=== PATIENT | female | born 1950 | race Hispanic/Latino ===

== ENCOUNTER 2017-01-02 19:37 | Emergency (ER) | payer MEDICARE ==
[2017-01-02] MEDS ORDERED: ZOFRAN IV ONE (21:21)
[2017-01-02] MEDS ORDERED: MORPHINE IV ONE (21:21)
[2017-01-02 21:57] LABS: Basophils % (Auto) 1.1 % (0.0-1.8); Eosinophils % (Auto) 2.5 % (0.0-4.3); Hematocrit 34.4 % (30.3-42.9); Hemoglobin 10.7 gm/dl (10.1-14.3); Mean Corpuscular HGB Conc 31 % (30-34); Mean Corpuscular Volume 77 fl (79-97); Platelet Count 369 K/mm3 (140-440); Red Blood Count 4.45 M/mm3 (3.65-5.03); Red Cell Distribution Width 16.7 % (13.2-15.2); White Blood Count 6.9 K/mm3 (4.5-11.0)
[2017-01-02 22:03] LABS: Mean Corpuscular Hemoglobin 24 pg (28-32)
[2017-01-02 22:08] LABS: Alanine Aminotransferase 12 units/L (7-56); Albumin 3.5 g/dL (3.9-5); Albumin/Globulin Ratio 0.9 %; Alkaline Phosphatase 100 units/L (35-129); Anion Gap 16 mmol/L; BUN/Creatinine Ratio 21.42; Blood Urea Nitrogen 15 mg/dL (7-17); Carbon Dioxide 24 mmol/L (22-30); Chloride 104.7 mmol/L (98-107); Glucose 100 mg/dL (65-100); Potassium 3.5 mmol/L (3.6-5.0); Sodium 141 mmol/L (137-145); Total Protein 7.5 g/dL (6.3-8.2)
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
[2017-01-03] MEDS ORDERED: XYLOCAINE 1% 20 mL INFILTRATI ONE (01:11)
[2017-01-03] MEDS ORDERED: XYLOCAINE 1% 20 mL ONE (01:13)
[2017-01-03] MEDS ORDERED: MORPHINE IV ONE (01:25)
[2017-01-03] MEDS ORDERED: CLEOCIN 600 MG/50 mL 600 MG/50 ML BAG IV ONE (01:27)
[2017-01-03] MEDS ORDERED: MORPHINE ONE (01:29)
[2017-01-03] MEDS ORDERED: TRIPLE ANTIBIOTIC TP ONE ×2 (01:30→02:00)
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
[2017-01-03] MEDS ORDERED: CLEOCIN ONE (01:49)
[2017-01-03] MEDS ORDERED: CLEOCIN IM ONE (02:10)
[2017-01-03 02:26] VITALS: BP 116/73
--- NOTE | 2017-01-03 10:05 | XRay Report ---
X-RAY LEFT TIBIA AND FIBULA TWO VIEWS: 01/02/17 19:37:00 CLINICAL: Redness and warmth of the lower leg. FINDINGS: No fracture or dislocation. Mild osteoarthritis at the knee. Normal soft tissues.No soft tissue air or foreign body. IMPRESSION: Arthritis at the knee but otherwise negative.
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
== END 2017-01-03 02:31 | disposition home or self-care (01) ==
LOC: ED 19:37
DX: S01.01XA Laceration without foreign body of scalp, initial encounter (principal); N20.0 Calculus of kidney; L03.116 Cellulitis of left lower limb; R10.30 Lower abdominal pain, unspecified; Y08.89XA Assault by other specified means, initial encounter; Y93.9 Activity, unspecified; Y92.9 Unspecified place or not applicable; Y99.9 Unspecified external cause status
CPT/HCPCS: 12001; 36415; 70450; 71101; 72125; 73590; 74177; 80053; 82140; 85025; 87040; 96372; 96374; 96375; 96376; 99285; J2270; J2405; A6250